=== PATIENT | female | born 1990 | race Two or more races ===

== ENCOUNTER 2020-01-08 18:30 | Emergency (ER) | payer BC ==
[~2020-01-08] VITALS: Ht 167.6 cm; Wt 61.2 kg
[2020-01-08] MEDS ORDERED: PRENATAL CAPLE1 EAC1 (19:08)
== END 2020-01-08 22:19 | disposition home or self-care (01) ==
LOC: ER 18:30
DX: O23.41 Unspecified infection of urinary tract in pregnancy, first trimester (principal)

== ENCOUNTER 2020-01-14 22:45 | Emergency (ER) | payer BC ==
[~2020-01-14] VITALS: Ht 167.6 cm; Wt 61.2 kg
[~2020-01-14 22:45] MED LIST: PRENATAL CAPLE1 EAC1
== END 2020-01-15 04:07 | disposition home or self-care (01) ==
LOC: ER 22:45
DX: O46.8X1 Other antepartum hemorrhage, first trimester (principal); Z03.818 Encounter for observation for suspected exposure to other biological agents ruled out; Z3A.10 10 weeks gestation of pregnancy

== ENCOUNTER → 2020-02-01 | Outpatient (CLI) | payer BC | END | disposition home or self-care (01) | LOC: PRENATAL 10:22 | PROVIDERS: ATTEND Obstetrics & Gynecology Maternal & Fetal Medicine | DX: Z36.89 Encounter for other specified antenatal screening (principal); O36.80X1 Pregnancy with inconclusive fetal viability, fetus 1 ==

== ENCOUNTER → 2020-03-12 | Outpatient (CLI) | payer BC | END | disposition home or self-care (01) | LOC: PRENATAL 08:00 | PROVIDERS: ATTEND Obstetrics & Gynecology Maternal & Fetal Medicine | DX: O35.3XX1 Maternal care for (suspected) damage to fetus from viral disease in mother, fetus 1 (principal); O98.512 Other viral diseases complicating pregnancy, second trimester; O35.0XX1 Maternal care for (suspected) central nervous system malformation in fetus, fetus 1; Z36.89 Encounter for other specified antenatal screening; Z3A.18 18 weeks gestation of pregnancy ==

== ENCOUNTER 2020-07-31 13:45 | Inpatient (IN) | payer OTHER ==
[~2020-07-31] VITALS: Ht 167.6 cm; Wt 88.0 kg
== END 2020-08-09 11:17 | disposition home or self-care (01) | DRG 807 ==
LOC: LDR 08-07 05:36 → SURG-SUITE 08-07 05:36 → OB/GYN 08-07 13:45 → SURG-SUITE 08-07 14:18
PROVIDERS: ADMIT Obstetrics & Gynecology; ATTEND Obstetrics & Gynecology
PROC: 4A1HXFZ Monitoring of Products of Conception, Cardiac Rhythm, External Approach (ICD-10-PCS; 2020-08-07)
PROC: 10E0XZZ Delivery of Products of Conception, External Approach (ICD-10-PCS; principal; 2020-08-09)
PROC: 0HQ9XZZ Repair Perineum Skin, External Approach (ICD-10-PCS; 2020-08-09)
DX: O70.0 First degree perineal laceration during delivery (principal); Z37.0 Single live birth; O99.824 Streptococcus B carrier state complicating childbirth; Z3A.39 39 weeks gestation of pregnancy; Z20.822 Contact with and (suspected) exposure to COVID-19